=== PATIENT | male | born 1950 | race Caucasian/White ===

== ENCOUNTER → 2017-03-19 | Outpatient (CLI) | payer OTHER, MEDICARE ==
--- NOTE | 2017-03-19 15:36 | PDCARST ---
CAR Stress Test Results Type of Stress Test: TM stress test Indication: abn stress test Description of Procedure: After informed consent was obtained, pt was exercised according to [facility] Protocol. Monitoring was performed with standard stress tester printed circuit boards electrode placement. Vital signs were monitored according to protocol throughout the procedure. STRESS EKG AND HEMODYNAMIC DATA. Exercise time: 9 min. This is equivalent to: 10.2 METS. Resting heart rate: 55 bpm. Resting blood pressure: 136/82 mmHg. Resting O2 saturation: 96 %. Peak heart rate: 143 bpm. This is 92 % of age predicted maximum heart rate response. Peak blood pressure: 182/88 mmHg. Exercise O2: 94 %. Arrhythmias : 1 PVC in recovery. Reason for termination: The test was stopped due to target heart rate achieved. Symptoms: The patient experienced no typical symptoms of angina during stress or recovery. STRESS TEST ANALYSIS. Baseline ECG: SR. Stress ECG: sinus tach. ECG changes: 1 mm flat-upsloping ECG changes with ex. Rhythm: 1 PVC in recovery. Blood pressure: normal blood pressure response to exercise. Exercise tolerance: The patient has normal exercise tolerance adjusted for age and gender. Symptoms: No exercise induced symptoms. Impression: 1 mm flat to upsloping ST depression with exercise which quickly resolves in recovery. Conclusion: Await nuclear images.
== END ==
LOC: FIMAGING 13:34
PROVIDERS: ATTEND Internal Medicine
DX: R94.39 Abnormal result of other cardiovascular function study (principal); E78.00 Pure hypercholesterolemia, unspecified; Z83.49 Family history of other endocrine, nutritional and metabolic diseases
CPT/HCPCS: 78452; 93017; A9500

== ENCOUNTER → 2018-08-29 | Outpatient (CLI) | payer OTHER, MEDICARE | LOC: BMCIMAGING 11:04 | PROVIDERS: ATTEND Family Medicine | DX: R07.89 Other chest pain (principal); M25.561 Pain in right knee | CPT/HCPCS: 71101-PO ==